=== PATIENT | male | born 1990 | race African-American/Black ===

== ENCOUNTER 2017-05-27 09:13 | Emergency (ER) | payer OTHER ==
[2017-05-27] MEDS ORDERED: DEXAMETHASONE 10 MG/ML VIAL PO STA (09:39)
--- NOTE | 2017-05-27 09:41 | ED Physician Documentation ---
PD HPI HEENT - Stated complaint Stated Complaint: SORE THROAT - Chief complaint Chief Complaint: Heent - History obtained from History obtained from: Patient - History of Present Illness Timing - onset: Last night Timing - duration: Hours Timing - details: Gradual onset, Still present Location: Throat Improves: Medication Worsens: Swalllowing Associated symptoms: Fever, Congestion, Rhinorrhea, Headache, Cough Similar symptoms before: Has not had sx before Recently seen: Not recently seen - Additional information Additional information: 26-year-old male was previously well, and has developed a cough about 2-3 days ago and last night he developed a sore throat and pain with swallowing. Review of Systems Constitutional: reports: Fever Eyes: denies: Decreased vision Ears: denies: Ear pain Nose: reports: Rhinorrhea / runny nose, Congestion Throat: reports: Sore throat Cardiac: denies: Chest pain / pressure, Palpitations Respiratory: reports: Cough. denies: Dyspnea GI: denies: Vomiting : denies: Dysuria PD PAST MEDICAL HISTORY - Past Medical History Past Medical History: No - Past Surgical History Past Surgical History: No - Present Medications Home Medications: Ambulatory Orders Medication Instructions Recorded Confirmed Azithromycin [Zithromax] 250 mg PO DAILY #6 tablet 05/27/17 - Allergies Allergies/Adverse Reactions: Allergies Allergy/AdvReac Type Severity Reaction Status Date / Time No Known Drug Allergies Allergy Verified 05/27/17 09:23 - Social History Does the pt smoke?: Yes Smoking Status: Current every day smoker Does the pt drink ETOH?: Yes Does the pt have substance abuse?: Yes Substance Use and Type: Marijuana - Immunizations Immunizations are current?: Yes PD ED PE NORMAL - Vitals Vital signs reviewed: Yes (febrile tachy and hypertensive) - General General: Alert and oriented X 3, No acute distress, Well developed/nourished - HEENT HEENT: Atraumatic, PERRL, EOMI, Other (There is inflammation in the left TM with distortion of landmarks. The pharynx is with 1+ crypitc tonsils with exudate. ) - Neck Neck: Supple, no meningeal sign, No bony TTP - Cardiac Cardiac: No murmur, Other (tachy to 110) - Respiratory Respiratory: No respiratory distress - Abdomen Abdomen: Soft, Non tender - Back Back: No CVA TTP, No spinal TTP - Derm Derm: Normal color, Warm and dry, No rash - Extremities Extremities: No deformity, No edema - Neuro Neuro: Alert and oriented X 3, No motor deficit, No sensory deficit Eye Opening: Spontaneous Motor: Obeys Commands Verbal: Oriented GCS Score: 15 - Psych Psych: Normal mood, Normal affect Results - Vitals Vitals: Vital Signs - 24 hr 05/27/17 05/27/17 09:15 10:10 Temperature 38.6 C H 37.6 C H Heart Rate 121 H 103 H Respiratory 18 18 Rate Blood Pressure 143/89 H 148/83 H O2 Saturation 98 98 Oxygen O2 Source Room air - Labs Labs: Laboratory Tests 05/27/17 09:20 Group A Strep Rapid Negative PD MEDICAL DECISION MAKING - ED course Complexity details: reviewed results, re-evaluated patient, considered differential, d/w patient ED course: 26 y/o male with uri and om is given decadron and we will put him on some azithromyacin Departure - Departure Disposition: 01 Home, Self Care Clinical Impression: Otitis media Qualifiers: Otitis media type: suppurative Chronicity: acute Laterality: left Recurrence: not specified as recurrent Spontaneous tympanic membrane rupture: without spontaneous rupture Qualified Code(s): H66.002 - Acute suppurative otitis media without spontaneous rupture of ear drum, left ear Condition: Stable Instructions: ED Otitis Media Acute Adult Follow-Up: [facility] [Provider Group] Prescriptions: Azithromycin [Zithromax] 250 mg PO DAILY #6 tablet Forms: Activity restrictions Discharge Date/Time: 05/27/17 10:10
[2017-05-27] MEDS ORDERED: CHERRY SYRUP 10 ML UDC PO ONE (09:53)
[2017-05-27 10:11] VITALS: BP 148/83
== END 2017-05-27 10:10 | disposition home or self-care (01) ==
LOC: ED 09:13
DX: H66.002 Acute suppurative otitis media without spontaneous rupture of ear drum, left ear (principal); F17.200 Nicotine dependence, unspecified, uncomplicated
CPT/HCPCS: 87070; 87430; 99283; A9270

== ENCOUNTER 2017-08-28 19:11 | Outpatient (CLI) | payer OTHER ==
--- NOTE | 2017-08-29 11:17 | XRAY Report ---
Procedure Date: 08/28/2017 Accession Number: [id number] / [id number] Procedure: XR - Lumbar Spine 2 View CPT Code: FULL RESULT: EXAM: Lumbar Spine 2 View DATE: 08/28/2017 7:45 PM CLINICAL HISTORY: LUMBAR SPINE PAIN, NO TRAUMA COMPARISON: None. TECHNIQUE: 3 views. FINDINGS: Alignment: No spondylolisthesis. Mild dextroscoliosis. Bones: Sacralization of L5 on the right. Question bony bridging L4-5 laterally on the left versus superimposition of shadows. No fractures or bone lesions. Disks: Mild L4-5 greater than L3-4 disc space narrowing. Facets: No degenerative changes. Sacroiliac Joints: Unremarkable. IMPRESSION: L5 right-sided sacralization. Question bony bridging left L4-5 versus superimposition of shadows. Early degenerative disc changes L3-4 and L4-5 discs. [facility]
== END 2017-08-28 19:12 | disposition home or self-care (01) ==
LOC: DI 19:11
PROVIDERS: ATTEND Internal Medicine
DX: M51.36 Other intervertebral disc degeneration, lumbar region (principal); Q76.49 Other congenital malformations of spine, not associated with scoliosis
CPT/HCPCS: 72100